=== PATIENT | female | born 1980 | race Two or more races ===

== ENCOUNTER 2024-12-13 07:22 | Emergency (ER) | payer BC, OTHER ==
[~2024-12-13] VITALS: Ht 165.1 cm; Wt 81.4 kg
--- NOTE | 2024-12-13 08:58 | DVH ---
CLINICAL INDICATION: dog bite to left thumb. pip TECHNIQUE: XY L HAND 3V XRAY Comparison: None FINDINGS/IMPRESSION: : 1. No acute fracture or dislocation of the left hand. 2. No radiopaque foreign bodies are identified in the soft tissues.
[2024-12-13] MEDS: TETANUS-DIPTH-ACEL PERTUSSIS 0.5ML SYR Tdap IM ONE (09:15)
[2024-12-13] MEDS ORDERED: AUG875T PO (10:01)
[2024-12-13] MEDS ORDERED: IBUP-1454 PO (10:01)
--- NOTE | 2024-12-13 10:01 | ED.PDOC ---
History of Present Illness(SKN HPI Comments 44-year-old with no MHx presents for a dog bite Bite occurred 1 hr ago Animal was a husky Animal was her dog. Sustained injury to Left thumb. Pain rated mild. No associated symptoms. Full ROM. Last tdap: unknown Denies abnormal animal behavior Denies history of immunocompromise (HIV hep B hep C) Denies fever chills night sweats Denies redness around the area Chief Complaint: Animal Bite Time Seen by MD: 07:38 History of Present Illness: Nurses Notes, Medications, Allergies Allergies: Coded Allergies: NO KNOWN ALLERGIES (Unverified , 12/13/24) Information Source: Patient Mode of Arrival: Ambulatory All Other Systems: Reviewed and Negative (Per HPI) Physical Exam General Appearance: No Apparent Distress, Normal HEENT: Normal ENT Inspection, Pharynx Normal, TMs Normal Neck: Full Range of Motion, Non-Tender, Normal, Normal Inspection Respiratory: Chest Non-Tender, Lungs Clear, No Accessory Muscle Use, No Respiratory Distress, Normal Breath Sounds Cardiovascular: No Edema, No JVD, No Murmur, No Gallop, Normal Peripheral Pulses, Regular Rate/Rhythm Breast Exam: Deferred Gastrointestinal: No Organomegaly, Non Tender, No Pulsatile Mass, Normal Bowel Sounds, Soft Genitalia: Deferred Pelvic: Deferred Rectal: Deferred Extremities: No calf tenderness, Normal capillary refill, Normal inspection, Normal range of motion, Non-tender, No pedal edema Musculoskeletal : Apperance: Normal Neurologic: Alert, magistrate assistant II-XII nml as Tested, No Motor Deficits, Normal Affect, Normal Mood, No Sensory Deficits Cerebellar Function: Normal Reflexes: Normal Skin: Dry, Normal Color, Warm Lymphatic: No Adenopathy Was a procedure done? Was a procedure done?: No Images 1 - Puncture wound to the PIP. Hemostasis. No TTP. Full ROM. Radial pulses 2+. Cap refill less than 2 seconds. Distal neuro sensation intact Differential Diagnosis (INTG) Differential Diagnosis: Laceration X-Ray, Labs, Meds, VS Vital Signs Date Time Temp Pulse Resp B/P (MAP) Pulse Ox O2 Delivery O2 Flow Rate FiO2 12/13/24 07:34 98.2 96 16 124/70 (88) 97 Current Medications Medications (Trade) Dose Ordered Sig/Joslyn Route Start Time Stop Time Status Last Admin Diphtheria/ Tetanus/Acell Pertussis (Boostrix T-Dap) 0.5 ml ONCE ONCE IM 12/13/24 08:30 12/13/24 08:31 DC 12/13/24 09:15 X-Ray, Labs, Meds, VS Comment Based on the history, exam, and test performed, there does not seem to be a retained foreign body, nerve injury, vascular injury, tendon injury, bone injury or foreign body. Wound appears clean. No evidence of purulent discharge. Doubtful for rabies as the dog is not a wild animal. No rabies vaccine given. Tdap updated Wound cleaned in the ER with jet irrigation. After copious irrigation, wound was closed with (except on hand/foot) Will let wound heal by secondary intention to decrease risk of abscess formation. Patient will be discharged home with prophylactic antibiotics. Will discharge home with Augmentin 875mg PO BID x 7days. Patient to [facility]up with [facility] or PCP in 2-3 days for wound re- check. Return to ER as needed. On reevaluation, patient had symptomatic improvement. Patient is stable for discharge at this time. External notes reviewed. Test results and diagnostic imaging interpreted. All diagnostic findings, discharge care, education and instructions provided Follow-up with PCP in 2 to 3 days Patient verbalized understanding and agreed to treatment plan Vital signs stable, afebrile, no acute distress noted Patient ambulatory with strong steady gait Advised to return precautions for any new or worsening symptoms, return to ER immediately for re-evaluation Patient is aware that the purpose of this visit was for an acute medical emergency requiring emergent stabilization. Chronic conditions, including malignancies have not been ruled out. Patient is instructed to follow up with PCP as directed and discharge instructions for continued care and workup. If unable to arrange follow-up, patient is to return to the emergency department for reassessment. Patient (parent or legal guardian if applicable) was given verbal and written discharge instructions and acknowledges understanding. Time of 1ST Reevaluation: 09:59 Reevaluation 1ST: Improved Patient Education/Counseling: Diagnosis, Treatment Family Education/Counseling: Diagnosis, Treatment Departure 1 Departure Time of Disposition: 10:00 Impression: Primary Impression: Dog bite Qualified Codes: W54.0XXA - Bitten by dog, initial encounter Disposition: HOME / SELF CARE / HOMELESS Condition: Fair e-Prescriptions Ibuprofen (Ibuprofen) 600 Mg Tab 1 TAB PO TID for 10 Days, #30 TAB 0 Refills Prov: DAISY ARIZA NP 12/13/24 Amoxicillin & Pot Clavulanate (AUGMENTIN TABLET) 875 Mg Tb 875 MG PO BID for 7 Days, #14 TAB 0 Refills Prov: DAISY ARIZA NP 12/13/24 Critical Care Note Critical Care Time?: No Stability Stability form required: No Heart Score Heart Score: Heart Score Response (Comments) Value History N/A 0 EKG N/A 0 Age N/A 0 Risk Factors N/A 0 Troponin N/A 0 Total 0 DAISY ARIZA NP Dec 13, 2024 10:01
[2024-12-13 10:07] VITALS: BP 121/74; PULSE 84; RESP 18; TEMP 98; O2SAT 97
== END 2024-12-13 10:41 | disposition home or self-care (01) ==
LOC: ER 07:22
DX: S61.032A Puncture wound without foreign body of left thumb without damage to nail, initial encounter (principal); W54.0XXA Bitten by dog, initial encounter; Y93.89 Activity, other specified; Y92.89 Other specified places as the place of occurrence of the external cause; Y99.8 Other external cause status
CPT/HCPCS: 73130; 90471; 90715

== ENCOUNTER → 2025-08-20 | Outpatient (CLI) | payer BC ==
[~2025-08-20] MED LIST: AUG875T PO; IBUP-1454 PO
[2025-08-20 11:11] LABS: Hematocrit 38.9 % (36.0-46.0); Hemoglobin 13.1 g/dL (12.2-16.2); Mean Corpuscular Hemoglobin 28.1 pg (28.0-32.0); Mean Corpuscular Volume 83.8 fL (80.0-100.0); Nucleated Red Blood Cells % 0.0 %
[2025-08-20 11:32] LABS: Iron 50.0 ug/dL (50-170)
[2025-08-20 11:33] LABS: Urine Budding Yeast OCCASIONAL /hpf (None Seen); Urine Protein, UAD Negative (Negative)
[2025-08-20 11:35] LABS: Alanine Aminotransferase 14 U/L (7-40); Alkaline Phosphatase 70 U/L (46-116); Anion Gap 8 (5-15); BUN/Creatinine Ratio 10.9 (10.0-20.0); Blood Urea Nitrogen 10 mg/dL (9-23); Calcium 9.4 mg/dL (8.7-10.4); Carbon Dioxide 25 mmol/L (20-31); Chloride 106 mmol/L (98-107); Glucose 86 mg/dL (74-106); Potassium 4.1 mmol/L (3.5-5.1); Sodium 139 mmol/L (136-145); Total Iron Binding Capacity 372.0 ug/dL (250-425); Total Protein 8.0 g/dL (5.7-8.2); Triglycerides 86 mg/dL (< 150)
[2025-08-20 11:36] LABS: Albumin 4.6 g/dL (3.2-4.8); Bilirubin, Total 0.5 mg/dL (0.2-1.0); Cholesterol 171 mg/dL (< 200); HDL Cholesterol 52 mg/dL (40-59)
[2025-08-20 11:39] LABS: Ferritin 5.8 ng/mL (10-291)
[2025-08-20 11:40] LABS: Free T4 (Free Thyroxine) 1.28 ng/dL (0.89-1.76)
== END | disposition home or self-care (01) ==
LOC: LAB 10:21
PROVIDERS: ATTEND Nurse Practitioner Family
DX: T78.40XA Allergy, unspecified, initial encounter (principal); E03.9 Hypothyroidism, unspecified; E78.5 Hyperlipidemia, unspecified; E55.9 Vitamin D deficiency, unspecified; D64.9 Anemia, unspecified; R42 Dizziness and giddiness; Z11.3 Encounter for screening for infections with a predominantly sexual mode of transmission; X58.XXXA Exposure to other specified factors, initial encounter
CPT/HCPCS: 36415; 80053; 80061; 81001; 82306; 82607; 82728; 82785; 83036; 83540; 83550; 84439; 84443; 85025; 86003; 86703; 86704; 86706; 86708; 86780; 86803; 87340